=== PATIENT | male | born 1955 | race Caucasian/White ===

== ENCOUNTER 2018-10-01 13:53 | Outpatient (CLI) | payer BC ==
--- NOTE | 2018-10-01 14:21 | RAD ---
PA AND LATERAL CHEST RADIOGRAPH: History: Shortness of breath. History of smoking. Comparison: 09-14-09 FINDINGS: There are increased interstitial opacities seen throughout the lungs bilaterally without patchy densi ty seen at the right lung base and in the region of the lingula. Findings may be related to infectiou s process versus asymmetric pulmonary edema. There is no pleural effusion or pneumothorax. No consoli dation is seen. The cardiac silhouette and pulmonary vasculature are within normal limits. IMPRESSION: Increased interstitial densities seen bilaterally with slightly greater patchy densities at the right lung base and in the region of the lingula. Findings may be related to either pulmonary edema or inf ectious process. Follow up to resolution is recommended. POS: [facility]
== END 2018-10-01 13:54 | disposition home or self-care (01) ==
LOC: BICRAD 13:53
PROVIDERS: ATTEND Family Medicine
DX: R06.02 Shortness of breath (principal); J98.4 Other disorders of lung
CPT/HCPCS: 71046

== ENCOUNTER 2021-03-02 11:03 | Outpatient (CLI) | payer BC | END 2021-03-02 11:04 | disposition home or self-care (01) | LOC: BICRAD 11:03 | PROVIDERS: ATTEND Internal Medicine Rheumatology | DX: M05.79 Rheumatoid arthritis with rheumatoid factor of multiple sites without organ or systems involvement (principal); J98.4 Other disorders of lung | CPT/HCPCS: 71046 ==

== ENCOUNTER 2021-06-29 10:34 | Outpatient (CLI) | payer BC | END 2021-06-29 10:35 | disposition home or self-care (01) | LOC: BICULT 10:34 | PROVIDERS: ATTEND Family Medicine | DX: I82.401 Acute embolism and thrombosis of unspecified deep veins of right lower extremity (principal) ==

== ENCOUNTER 2021-08-21 08:55 | Outpatient (CLI) | payer MEDICARE, BC | END 2021-08-21 08:56 | disposition home or self-care (01) | LOC: BICRAD 08:55 | PROVIDERS: ATTEND Family Medicine | DX: R06.02 Shortness of breath (principal); J20.7 Acute bronchitis due to echovirus; R91.8 Other nonspecific abnormal finding of lung field; J84.89 Other specified interstitial pulmonary diseases | CPT/HCPCS: 71046 ==

== ENCOUNTER 2021-08-26 06:15 | Inpatient (IN) | payer MEDICARE, BC ==
[2021-08-26 07:23] LABS: Bilirubin Negative (Negative); Blood, Urine Negative (Negative); Clarity Clear (Clear); Glucose, Urine (Dipstick) Normal (Negative); Ketone, Urine Negative (Negative); Leukocyte Negative Leu/uL (Negative); Nitrite Negative (Negative); Protein, Urine (Dipstick) Negative (Neg-Trace); Specific Gravity, Urine 1.006 (1.002-1.036); Urobilinogen Normal mg/dL (Less than 2)
[2021-08-26 08:29] LABS: #Basophils 0.1 thou/uL (0.0-0.2); #Eosinphils 0.4 thou/uL (0.0-0.7); #Lymphocytes 1.7 thou/uL (1.20-3.40); #Monocytes 0.5 thou/uL (0.11-0.59); #Neutrophils 15.8 thou/uL (1.40-6.50); %Basophils 0.4 % (0.0-1.0); %Eosinophils 2.2 % (0.0-10.0); %Lymphocytes 9.3 % (21.0-51.0); %Monocytes 2.6 % (0.0-10.0); %Neutrophils 85.6 % (42.0-75.0); Hemoglobin 11.1 g/dL (14.0-18.0); Mean Corpuscular HGB CONC 32.9 g/dL (32.0-36.0); Mean Corpuscular Volume 91.1 fL (78.0-98.0); Mean Platelet Volume 7.5 fL (7.4-10.4); Platelet Count 343 thou/uL (130-400); Red Blood Cell (RBC) Count 3.71 mill/uL (4.70-6.10); White Blood Cell (WBC) Count 18.4 thou/uL (4.8-10.8)
[2021-08-26 08:49] LABS: ALT (SGPT) 61 U/L (8-55); AST (SGOT) 41 U/L (5-34); Alkaline Phosphatase 93 U/L (40-110); Anion Gap 12 mmol/L (10-20); BUN (Urea Nitrogen) 9 mg/dL (8.4-25.7); Bilirubin, Total 0.3 mg/dL (0.2-1.2); Calc. Creatinine Clearance 0 mL/min (70-130); Calcium 8.2 mg/dL (7.8-10.44); Carbon Dioxide 23 mmol/L (23-31); Chloride 106 mmol/L (98-107); Estimated GFR 103; Globulin 2.7 g/dL (2.4-3.5); Glucose 78 mg/dL (80-115); Potassium 3.3 mmol/L (3.5-5.1); Protein, Total 5.7 g/dL (5.8-8.1); Sodium 138 mmol/L (136-145)
[2021-08-26] MEDS ORDERED: Cefepime 2 GM VIAL ONE (08:50)
[2021-08-26 09:52] LABS: SARS-CoV-2 NAA Rapid Test Not Detected (NotDetected)
[2021-08-26] MEDS ORDERED: Acetaminophen 325 MG TAB PO PRN (10:43)
[2021-08-26] MEDS ORDERED: Potassium Chloride 20 MEQ TAB PO SCH (11:45)
[2021-08-26] MEDS ORDERED: Albuterol Sulfate 1.25 MG/3 ML NEB NEB SCH (11:45)
[2021-08-26 12:26] LABS: Iron 18 ug/dL (65-175); Iron Binding Capacity, Total 265 mcg/dL (261-462)
[2021-08-26] MEDS ORDERED: Albuterol Sulfate 2.5 mg/3 ml Neb NEB SCH (13:00)
[2021-08-26] MEDS ORDERED: cefTRIAXone\\ROCEPHIN 1 GM in Sodium Chloride 0.9% 100 ML IVPB SCH (13:00)
[2021-08-26] MEDS: Nicotine 14 MG PATCH TD SCH (13:47)
[2021-08-26] MEDS: Benzonatate 100 MG CAP PO PRN ×2 (13:50→20:30)
[2021-08-26] MEDS ORDERED: Azithromycin 500 MG in Sodium Chloride 0.9% 250 ML 250 ML IVPB SCH (14:00)
[2021-08-26] MEDS ORDERED: Iopamidol-370 76% 500 ML 1 ML ONE (15:35)
[2021-08-26] MEDS: Mometasone 200 MCG/Formoterol 5 MCG 120 PUFF INHALER INH SCH (19:29)
[2021-08-26] MEDS ORDERED: hydrOXYzine 25 MG TAB PO PRN (20:24)
[2021-08-26] MEDS: Enoxaparin Sodium 80 MG/0.8 ML SYRINGE SC SCH (20:30)
[2021-08-26] MEDS ORDERED: hydrOXYzine 25 MG TAB PO SCH (20:30)
[2021-08-26] MEDS ORDERED: Ketorolac Tromethamine 10 MG TAB PO SCH (20:45)
[2021-08-27] MEDS ORDERED: diphenhydrAMINE 50 MG CAP PO SCH ×2 (01:15→05:30)
[2021-08-27] MEDS: Benzonatate 100 MG CAP PO PRN ×2 (02:16→12:29)
[2021-08-27] MEDS ORDERED: Lorazepam 0.5 MG TAB PO SCH (06:15)
[2021-08-27 06:51] LABS: Anion Gap 18 mmol/L (10-20); BUN (Urea Nitrogen) 11 mg/dL (8.4-25.7); Calc. Creatinine Clearance 88 mL/min (70-130); Calcium 8.3 mg/dL (7.8-10.44); Carbon Dioxide 18 mmol/L (23-31); Chloride 103 mmol/L (98-107); Estimated GFR 99; Glucose 80 mg/dL (80-115); Magnesium 1.6 mg/dL (1.6-2.6); Phosphorus 2.7 mg/dL (2.3-4.7); Potassium 3.9 mmol/L (3.5-5.1); Sodium 135 mmol/L (136-145)
[2021-08-27] MEDS: Mometasone 200 MCG/Formoterol 5 MCG 120 PUFF INHALER INH SCH ×2 (07:17→18:17)
[2021-08-27 07:24] LABS: Mean Corpuscular HGB CONC 32.4 g/dL (32.0-36.0); Mean Corpuscular Hemoglobin 29.5 pg (27.0-31.0); Mean Corpuscular Volume 91.2 fL (78.0-98.0); Mean Platelet Volume 7.5 fL (7.4-10.4); Platelet Count 297 thou/uL (130-400); RBC Distribution Width 14.2 % (11.5-14.5); Red Blood Cell (RBC) Count 3.73 mill/uL (4.70-6.10); White Blood Cell (WBC) Count 13.8 thou/uL (4.8-10.8)
[2021-08-27 08:06] LABS: Band 26 % (5-11); Lymphocytes 9 % (21-51); MDiff Complete? YES; Neutrophil 65 % (42-75); Platelet Morphology Comment Appears Adequate; Polychromasia SLIGHT = 2-3 cells (100X) (0-2/hpf)
[2021-08-27] MEDS: Enoxaparin Sodium 80 MG/0.8 ML SYRINGE SC SCH (08:18)
[2021-08-27] MEDS: Iron Polysaccharides Complex 150 MG CAP PO SCH (08:18)
[2021-08-27] MEDS: Leflunomide 10 mg Tablet PO SCH (08:18)
[2021-08-27] MEDS ORDERED: Enoxaparin Sodium 40 MG/0.4 ML SYRINGE SC SCH (09:00)
[2021-08-27] MEDS ORDERED: Lorazepam (BATCHED) 2 MG/ML SYR SLOW IVP PRN (11:51)
[2021-08-27] MEDS: Nicotine 14 MG PATCH TD SCH (11:58)
[2021-08-27] MEDS ORDERED: ALPRAZolam 0.25 MG TAB PO SCH ×2 (12:00→21:00)
[2021-08-27] MEDS ORDERED: clonazePAM 0.5 MG TAB PO SCH (12:00)
[2021-08-27] MEDS ORDERED: guaiFENesin/Codeine 200 mg/20 mg 10 ml Cup PO PRN (14:51)
[2021-08-27] MEDS ORDERED: Azithromycin 500 MG in Sodium Chloride 0.9% 250 ML 250 ML IVPB SCH (15:00)
[2021-08-27] MEDS ORDERED: Meropenem 1 GM in Sodium Chloride 0.9% 100 ML IVPB SCH ×2 (15:00→22:00)
[2021-08-27] MEDS: Vancomycin 1 GM in Premix Bag 1 BAG IVPB SCH (15:47)
[2021-08-27 16:46] LABS: Actual Bicarbonate (HCO3a) 18.6 mEq/L (22-28); Base Excess (BEa) -3.4 mEq/L (-2.0 to +3.0); Calcium, Ionized (arterial) 1.05 mmol/L (1.12-1.30); Carboxyhemoglobin (COHb) 0.9 gm% (0.0-3.0); Hemoglobin (Hb) 11.9 g/dL (14.0-18.0); Potassium - ABG Lab 4.65 mmol/L (3.70-5.30); pH, Arterial 7.49 (7.35-7.45)
[2021-08-27 16:47] LABS: CO2 Tension 25.1 mmHg (35.0-45.0); O2 Tension (PaO2), arterial 42.4 mmHg (> 80.0)
[2021-08-27 16:48] LABS: ALV-art Gradient 639.225 mmHg (0-20); Puncture Site RRA
[2021-08-27] MEDS ORDERED: Midazolam HCl 2 mg/2 ml Vial SLOW IVP SCH ×2 (17:00→18:15)
[2021-08-27] MEDS ORDERED: Diazepam 10 MG/2 ML SYRINGE IVP SCH (17:00)
[2021-08-27] MEDS ORDERED: Propofol 1,000 MG/100 ML VIAL IV ONE (17:34)
[2021-08-27] MEDS ORDERED: Midazolam HCl 2 mg/2 ml Vial ONE (17:36)
[2021-08-27] MEDS ORDERED: Norepinephrine 8 MG/0.9% NS 250 ML ONE (17:36)
[2021-08-27] MEDS: Midazolam HCl 2 mg/2 ml Vial ONE ×2 (17:47→18:14)
[2021-08-27] MEDS ORDERED: Electrolyte Replacement Protocol 1 EACH IVPB ONE (18:11)
[2021-08-27] MEDS ORDERED: Acetaminophen 325 MG Suppository PR PRN (18:11)
[2021-08-27] MEDS: Azithromycin 500 MG in Sodium Chloride 0.9% 250 ML 250 ML IVPB SCH (18:12)
[2021-08-27] MEDS ORDERED: Fentanyl BOLUS 250 ML IVPB PRN (18:15)
[2021-08-27] MEDS ORDERED: Propofol BOLUS 1,000 MG/100 ML VIAL IV PRN (18:15)
[2021-08-27] MEDS ORDERED: DISCONTINUE PREVIOUS NARCOTIC PAIN MEDICATIONS AND BENZODIAZEPINES FS SCH (18:15)
[2021-08-27] MEDS ORDERED: Ventilator Sedation Protocol 1 EACH FS SCH (18:15)
[2021-08-27] MEDS: Propofol 1,000 MG/100 ML VIAL IV PRN (18:16)
[2021-08-27] MEDS: Midazolam HCl 2 mg/2 ml Vial SLOW IVP PRN ×4 (18:18→23:59)
[2021-08-27] MEDS: Fentanyl CADD 100 ML IV SCH (18:27)
[2021-08-27] MEDS ORDERED: Magnesium 2 GM/50 ML(in water) 2 GM in Premix Bag 1 BAG IVPB SCH (18:30)
[2021-08-27] MEDS ORDERED: Electrolyte Replacement Protocol FS PRN (18:30)
[2021-08-27 18:57] LABS: Actual Bicarbonate (HCO3a) 17.7 mEq/L (22-28); Analyzer IN Cardio ER; Base Excess (BEa) -8.5 mEq/L (-2.0 to +3.0); CO2 Tension 39.2 mmHg (35.0-45.0); Calcium, Ionized (arterial) 1.04 mmol/L (1.12-1.30); Hemoglobin (Hb) 10.8 g/dL (14.0-18.0); O2 Tension (PaO2), arterial 66.6 mmHg (> 80.0); Potassium - ABG Lab 4.39 mmol/L (3.70-5.30); pH, Arterial 7.27 (7.35-7.45)
[2021-08-27 19:00] LABS: Puncture Site RBA
[2021-08-27] MEDS ORDERED: Sodium Bicarbonate 150 MEQ in Dextrose 5% in Water 1,000 ML IV SCH (19:45)
[2021-08-27] MEDS: ALPRAZolam 0.5 MG TAB PO SCH (20:32)
[2021-08-27] MEDS: methylPREDNISolone Sod Succ 40 MG VIAL IVP SCH (20:33)
[2021-08-27] MEDS ORDERED: Norepinephrine 8 MG in Dextrose 5% in Water 242 ML IVPB PRN (21:45)
[2021-08-27 23:41] LABS: Actual Bicarbonate (HCO3a) 19.6 mEq/L (22-28); Base Excess (BEa) -4.6 mEq/L (-2.0 to +3.0); CO2 Tension 34.2 mmHg (35.0-45.0); Calcium, Ionized (arterial) 1.06 mmol/L (1.12-1.30); O2 Tension (PaO2), arterial 71.7 mmHg (> 80.0); Potassium - ABG Lab 4.44 mmol/L (3.70-5.30); pH, Arterial 7.38 (7.35-7.45)
[2021-08-27 23:43] LABS: Puncture Site RBR
[2021-08-28] MEDS: Midazolam HCl 2 mg/2 ml Vial SLOW IVP PRN ×6 (01:13→21:20)
[2021-08-28] MEDS: Propofol 1,000 MG/100 ML VIAL IV PRN ×2 (01:51→07:48)
[2021-08-28] MEDS ORDERED: Fentanyl CADD 100 ML ONE ×2 (02:43→14:36)
[2021-08-28] MEDS: Fentanyl CADD 100 ML IV SCH ×2 (03:14→14:39)
[2021-08-28 03:36] LABS: #Eosinphils 0.2 thou/uL (0.0-0.7); #Lymphocytes 0.9 thou/uL (1.20-3.40); #Monocytes 0.4 thou/uL (0.11-0.59); #Neutrophils 9.3 thou/uL (1.40-6.50); %Basophils 0.3 % (0.0-1.0); %Eosinophils 1.9 % (0.0-10.0); %Lymphocytes 8.1 % (21.0-51.0); %Monocytes 3.5 % (0.0-10.0); %Neutrophils 86.1 % (42.0-75.0); Hemoglobin 9.8 g/dL (14.0-18.0); Mean Corpuscular HGB CONC 32.5 g/dL (32.0-36.0); Mean Corpuscular Hemoglobin 29.9 pg (27.0-31.0); Mean Corpuscular Volume 92.1 fL (78.0-98.0); Platelet Count 312 thou/uL (130-400); RBC Distribution Width 14.2 % (11.5-14.5); Red Blood Cell (RBC) Count 3.27 mill/uL (4.70-6.10); White Blood Cell (WBC) Count 10.8 thou/uL (4.8-10.8)
[2021-08-28] MEDS: Vancomycin 1 GM in Premix Bag 1 BAG IVPB SCH ×2 (03:52→14:32)
[2021-08-28 04:06] LABS: ALT (SGPT) 41 U/L (8-55); AST (SGOT) 47 U/L (5-34); Albumin 2.6 g/dL (3.4-4.8); Alkaline Phosphatase 81 U/L (40-110); Anion Gap 18 mmol/L (10-20); BUN (Urea Nitrogen) 15 mg/dL (8.4-25.7); Bilirubin, Total 0.4 mg/dL (0.2-1.2); Calc. Creatinine Clearance 0 mL/min (70-130); Calcium 7.8 mg/dL (7.8-10.44); Carbon Dioxide 20 mmol/L (23-31); Chloride 101 mmol/L (98-107); Estimated GFR 101; Globulin 2.8 g/dL (2.4-3.5); Glucose 129 mg/dL (80-115); Potassium 4.5 mmol/L (3.5-5.1); Protein, Total 5.4 g/dL (5.8-8.1); Sodium 134 mmol/L (136-145)
[2021-08-28 06:39] LABS: Actual Bicarbonate (HCO3a) 23.4 mEq/L (22-28); Base Excess (BEa) -1.1 mEq/L (-2.0 to +3.0); CO2 Tension 38.6 mmHg (35.0-45.0); Calcium, Ionized (arterial) 1.03 mmol/L (1.12-1.30); O2 Tension (PaO2), arterial 71.1 mmHg (> 80.0); Potassium - ABG Lab 4.03 mmol/L (3.70-5.30); Puncture Site RRA
[2021-08-28] MEDS ORDERED: Dexmedetomidine In 0.9 % NaCl 100 ML IVPB SCH (07:15)
[2021-08-28] MEDS: Mometasone 200 MCG/Formoterol 5 MCG 120 PUFF INHALER INH SCH ×2 (07:21→18:31)
[2021-08-28] MEDS: Meropenem 1 GM in Sodium Chloride 0.9% 100 ML IVPB SCH ×4 (07:49→22:58)
[2021-08-28] MEDS: Leflunomide 10 mg Tablet PO SCH (07:51)
[2021-08-28] MEDS: Iron Polysaccharides Complex 150 MG CAP PO SCH (07:51)
[2021-08-28] MEDS: methylPREDNISolone Sod Succ 40 MG VIAL IVP SCH ×2 (07:51→20:37)
[2021-08-28] MEDS: ALPRAZolam 0.5 MG TAB PO SCH ×3 (07:51→20:39)
[2021-08-28] MEDS: Pantoprazole 40 MG VIAL IVP SCH (07:52)
[2021-08-28] MEDS ORDERED: Pantoprazole 40 MG VIAL IVP SCH (09:00)
[2021-08-28] MEDS: Nicotine 14 MG PATCH TD SCH (12:14)
[2021-08-28] MEDS: Azithromycin 500 MG in Sodium Chloride 0.9% 250 ML 250 ML IVPB SCH (16:44)
[2021-08-28] MEDS ORDERED: Sodium Chloride 0.9% 1,000 ML IV SCH (17:00)
[2021-08-28] MEDS: Sodium Chloride 0.9% 1,000 ML IV SCH ×2 (17:04→18:01)
[2021-08-28] MEDS: Enoxaparin Sodium 80 MG/0.8 ML SYRINGE SC SCH (20:38)
[2021-08-28] MEDS: Senokot S 8.6-50 MG TAB PO SCH (20:39)
[2021-08-28] MEDS ORDERED: D5W IVPB PRN (22:15)
[2021-08-28] MEDS ORDERED: NOREPINEPHRINE IVPB PRN (22:15)
[2021-08-29 02:05] LABS: #Lymphocytes 0.3 thou/uL (1.20-3.40); #Monocytes 0.3 thou/uL (0.11-0.59); #Neutrophils 10.2 thou/uL (1.40-6.50); %Eosinophils 0.2 % (0.0-10.0); %Lymphocytes 2.4 % (21.0-51.0); %Monocytes 2.9 % (0.0-10.0); %Neutrophils 94.4 % (42.0-75.0); Hemoglobin 8.9 g/dL (14.0-18.0); Mean Corpuscular HGB CONC 32.7 g/dL (32.0-36.0); Mean Corpuscular Hemoglobin 30.5 pg (27.0-31.0); Mean Corpuscular Volume 93.4 fL (78.0-98.0); Mean Platelet Volume 7.8 fL (7.4-10.4); Platelet Count 252 thou/uL (130-400); RBC Distribution Width 14.2 % (11.5-14.5); Red Blood Cell (RBC) Count 2.91 mill/uL (4.70-6.10); White Blood Cell (WBC) Count 10.8 thou/uL (4.8-10.8)
[2021-08-29] MEDS: Midazolam HCl 2 mg/2 ml Vial SLOW IVP PRN (02:20)
[2021-08-29 02:24] LABS: Vancomycin, Trough 8.7 ug/mL
[2021-08-29] MEDS: Sodium Chloride 0.9% 1,000 ML IV SCH ×2 (02:27→13:00)
[2021-08-29 02:44] LABS: ALT (SGPT) 42 U/L (8-55); AST (SGOT) 34 U/L (5-34); Albumin 2.4 g/dL (3.4-4.8); Alkaline Phosphatase 87 U/L (40-110); Anion Gap 15 mmol/L (10-20); BUN (Urea Nitrogen) 19 mg/dL (8.4-25.7); Bilirubin, Total Less than 0.2 mg/dL (0.2-1.2); Calc. Creatinine Clearance 96 mL/min (70-130); Calcium 6.8 mg/dL (7.8-10.44); Carbon Dioxide 19 mmol/L (23-31); Chloride 110 mmol/L (98-107); Estimated GFR 101; Globulin 2.7 g/dL (2.4-3.5); Glucose 201 mg/dL (80-115); Potassium 5.1 mmol/L (3.5-5.1); Protein, Total 5.1 g/dL (5.8-8.1); Sodium 139 mmol/L (136-145)
[2021-08-29] MEDS: Vancomycin 1 GM in Premix Bag 1 BAG IVPB SCH (02:49)
[2021-08-29] MEDS: Dexmedetomidine 1,000 MCG in Sodium Chloride 0.9% 250 ML 240 ML IVPB SCH ×3 (02:50→20:44)
[2021-08-29] MEDS: Vancomycin 1.5 GRAM/300 ML BAG 1.5 GM in Premix Bag 1 BAG IVPB SCH ×2 (02:59→15:08)
[2021-08-29] MEDS ORDERED: Fentanyl CADD 100 ML ONE ×2 (04:17→19:45)
[2021-08-29] MEDS: Fentanyl CADD 100 ML IV SCH ×2 (04:21→19:58)
[2021-08-29] MEDS: Mometasone 200 MCG/Formoterol 5 MCG 120 PUFF INHALER INH SCH ×2 (07:12→18:44)
[2021-08-29] MEDS: Meropenem 1 GM in Sodium Chloride 0.9% 100 ML IVPB SCH (07:45)
[2021-08-29] MEDS: Enoxaparin Sodium 80 MG/0.8 ML SYRINGE SC SCH ×2 (10:38→20:04)
[2021-08-29] MEDS: Polyethylene Glycol 3350 17 GM Packet PER TUBE SCH (10:38)
[2021-08-29] MEDS: Leflunomide 10 mg Tablet PO SCH (10:40)
[2021-08-29] MEDS: ALPRAZolam 0.5 MG TAB PO SCH ×3 (10:40→20:04)
[2021-08-29] MEDS: cefTRIAXone\\ROCEPHIN 1 GM in Sodium Chloride 0.9% 100 ML IVPB SCH (10:40)
[2021-08-29] MEDS: methylPREDNISolone Sod Succ 40 MG VIAL IVP SCH ×2 (10:40→20:05)
[2021-08-29] MEDS: Senokot S 8.6-50 MG TAB PO SCH ×2 (10:41→20:05)
[2021-08-29] MEDS: Iron Polysaccharides Complex 150 MG CAP PO SCH (12:57)
[2021-08-29] MEDS: Pantoprazole 40 MG VIAL IVP SCH (12:59)
[2021-08-29] MEDS: Nicotine 14 MG PATCH TD SCH (13:03)
[2021-08-29] MEDS: Propofol 1,000 MG/100 ML VIAL IV PRN (15:33)
[2021-08-29] MEDS ORDERED: Sodium Chloride 0.9% 1,000 ML IV SCH (17:00)
[2021-08-29] MEDS: Azithromycin 500 MG in Sodium Chloride 0.9% 250 ML 250 ML IVPB SCH (17:06)
[2021-08-30] MEDS ORDERED: Racepinephrine 2.25% 0.5 ML NEB ONE (03:23)
[2021-08-30] MEDS: Vancomycin 1.5 GRAM/300 ML BAG 1.5 GM in Premix Bag 1 BAG IVPB SCH (03:35)
[2021-08-30] MEDS: Propofol 1,000 MG/100 ML VIAL IV PRN (03:43)
[2021-08-30] MEDS: Dexmedetomidine 1,000 MCG in Sodium Chloride 0.9% 250 ML 240 ML IVPB SCH ×2 (06:09→22:46)
[2021-08-30] MEDS: Mometasone 200 MCG/Formoterol 5 MCG 120 PUFF INHALER INH SCH ×2 (06:35→19:04)
[2021-08-30 06:58] LABS: #Lymphocytes 0.6 thou/uL (1.20-3.40); #Monocytes 0.7 thou/uL (0.11-0.59); #Neutrophils 9.1 thou/uL (1.40-6.50); %Eosinophils 0.1 % (0.0-10.0); %Lymphocytes 5.5 % (21.0-51.0); %Monocytes 6.7 % (0.0-10.0); %Neutrophils 87.6 % (42.0-75.0); Hemoglobin 9.1 g/dL (14.0-18.0); Mean Corpuscular HGB CONC 31.1 g/dL (32.0-36.0); Mean Corpuscular Hemoglobin 28.9 pg (27.0-31.0); Mean Platelet Volume 8.3 fL (7.4-10.4); Platelet Count 299 thou/uL (130-400); RBC Distribution Width 14.2 % (11.5-14.5); Red Blood Cell (RBC) Count 3.16 mill/uL (4.70-6.10); White Blood Cell (WBC) Count 10.4 thou/uL (4.8-10.8)
[2021-08-30 07:20] LABS: Actual Bicarbonate (HCO3a) 22.9 mEq/L (22-28); Base Excess (BEa) -1.6 mEq/L (-2.0 to +3.0); CO2 Tension 37.8 mmHg (35.0-45.0); Carboxyhemoglobin (COHb) 0.5 gm% (0.0-3.0); O2 Tension (PaO2), arterial 70.9 mmHg (> 80.0)
[2021-08-30 07:26] LABS: ALT (SGPT) 135 U/L (8-55); AST (SGOT) 52 U/L (5-34); Albumin 2.5 g/dL (3.4-4.8); Alkaline Phosphatase 124 U/L (40-110); Anion Gap 17 mmol/L (10-20); BUN (Urea Nitrogen) 29 mg/dL (8.4-25.7); Bilirubin, Total Less than 0.2 mg/dL (0.2-1.2); Calc. Creatinine Clearance 104 mL/min (70-130); Calcium 7.2 mg/dL (7.8-10.44); Carbon Dioxide 17 mmol/L (23-31); Chloride 110 mmol/L (98-107); Estimated GFR 101; Globulin 2.6 g/dL (2.4-3.5); Glucose 198 mg/dL (80-115); Potassium 5.5 mmol/L (3.5-5.1); Protein, Total 5.1 g/dL (5.8-8.1); Sodium 138 mmol/L (136-145)
[2021-08-30 07:53] LABS: Puncture Site LRA
[2021-08-30] MEDS: Enoxaparin Sodium 80 MG/0.8 ML SYRINGE SC SCH ×2 (09:24→21:06)
[2021-08-30] MEDS: Polyethylene Glycol 3350 17 GM Packet PER TUBE SCH (09:24)
[2021-08-30] MEDS: ALPRAZolam 0.5 MG TAB PO SCH (09:25)
[2021-08-30] MEDS: Pantoprazole 40 MG VIAL IVP SCH (09:25)
[2021-08-30] MEDS: methylPREDNISolone Sod Succ 40 MG VIAL IVP SCH ×2 (09:25→20:58)
[2021-08-30] MEDS: Senokot S 8.6-50 MG TAB PO SCH (09:26)
[2021-08-30] MEDS: cefTRIAXone\\ROCEPHIN 1 GM in Sodium Chloride 0.9% 100 ML IVPB SCH (09:27)
[2021-08-30] MEDS: Leflunomide 10 mg Tablet PO SCH (11:25)
[2021-08-30] MEDS: Nicotine 14 MG PATCH TD SCH (13:22)
[2021-08-30] MEDS ORDERED: Acetaminophen 325 MG TAB PER TUBE PRN (13:30)
[2021-08-30] MEDS: Iron Polysaccharides Complex 150 MG CAP PO SCH (13:38)
[2021-08-30] MEDS ORDERED: guaiFENesin/Codeine 200 mg/20 mg 10 ml Cup PER TUBE PRN (13:45)
[2021-08-30] MEDS ORDERED: Furosemide 20 MG/2 ML VIAL SLOW IVP SCH (13:45)
[2021-08-30 14:46] LABS: Vancomycin, Trough 23.5 ug/mL
[2021-08-30] MEDS ORDERED: ALPRAZolam 0.5 MG TAB PER TUBE SCH (15:00)
[2021-08-30] MEDS: ALPRAZolam 0.5 MG TAB PER TUBE SCH ×2 (16:48→20:57)
[2021-08-30] MEDS: Azithromycin 500 MG in Sodium Chloride 0.9% 250 ML 250 ML IVPB SCH (16:48)
[2021-08-30] MEDS: Fentanyl CADD 100 ML IV SCH (20:02)
[2021-08-30] MEDS: Senokot S 8.6-50 MG TAB PER TUBE SCH (21:55)
[2021-08-31 02:18] LABS: #Lymphocytes 0.4 thou/uL (1.20-3.40); #Monocytes 0.7 thou/uL (0.11-0.59); #Neutrophils 10.9 thou/uL (1.40-6.50); %Eosinophils 0.2 % (0.0-10.0); %Lymphocytes 3.4 % (21.0-51.0); %Monocytes 5.4 % (0.0-10.0); Mean Corpuscular HGB CONC 32.9 g/dL (32.0-36.0); Mean Corpuscular Hemoglobin 30.5 pg (27.0-31.0); Mean Corpuscular Volume 92.7 fL (78.0-98.0); Mean Platelet Volume 8.4 fL (7.4-10.4); Platelet Count 304 thou/uL (130-400); RBC Distribution Width 14.1 % (11.5-14.5); Red Blood Cell (RBC) Count 2.97 mill/uL (4.70-6.10)
[2021-08-31 02:31] LABS: Vancomycin, Random 11.6 ug/mL (See Comment)
[2021-08-31 03:36] LABS: ALT (SGPT) 138 U/L (8-55); AST (SGOT) 56 U/L (5-34); Albumin 2.6 g/dL (3.4-4.8); Alkaline Phosphatase 126 U/L (40-110); Anion Gap 16 mmol/L (10-20); BUN (Urea Nitrogen) 29 mg/dL (8.4-25.7); Bilirubin, Total 0.3 mg/dL (0.2-1.2); Calc. Creatinine Clearance 117 mL/min (70-130); Calcium 7.5 mg/dL (7.8-10.44); Carbon Dioxide 22 mmol/L (23-31); Chloride 108 mmol/L (98-107); Estimated GFR 105; Globulin 2.7 g/dL (2.4-3.5); Glucose 190 mg/dL (80-115); Potassium 4.1 mmol/L (3.5-5.1); Protein, Total 5.3 g/dL (5.8-8.1); Sodium 142 mmol/L (136-145)
[2021-08-31] MEDS: VANCOMYCIN 1.25 GM/250 ML BAG 1.25 GM in Premix Bag 1 BAG IVPB SCH ×2 (04:26→17:54)
[2021-08-31] MEDS: Mometasone 200 MCG/Formoterol 5 MCG 120 PUFF INHALER INH SCH ×2 (07:45→18:53)
[2021-08-31] MEDS ORDERED: Furosemide 20 MG/2 ML VIAL SLOW IVP SCH (09:00)
[2021-08-31] MEDS: Polyethylene Glycol 3350 17 GM Packet PER TUBE SCH (09:30)
[2021-08-31] MEDS: Senokot S 8.6-50 MG TAB PER TUBE SCH ×2 (09:30→21:58)
[2021-08-31] MEDS: ALPRAZolam 0.5 MG TAB PER TUBE SCH (09:30)
[2021-08-31] MEDS: methylPREDNISolone Sod Succ 40 MG VIAL IVP SCH ×2 (09:30→22:00)
[2021-08-31] MEDS: Pantoprazole 40 MG VIAL IVP SCH (09:30)
[2021-08-31] MEDS: Enoxaparin Sodium 80 MG/0.8 ML SYRINGE SC SCH ×2 (09:30→21:58)
[2021-08-31] MEDS: cefTRIAXone\\ROCEPHIN 1 GM in Sodium Chloride 0.9% 100 ML IVPB SCH (09:30)
[2021-08-31] MEDS: Dexmedetomidine 1,000 MCG in Sodium Chloride 0.9% 250 ML 240 ML IVPB SCH (12:01)
[2021-08-31] MEDS: Nicotine 14 MG PATCH TD SCH (13:27)
[2021-08-31] MEDS ORDERED: ADMIXTURE FEE IVPB SCH (15:00)
[2021-08-31] MEDS ORDERED: VANCOMYCIN IVPB SCH (15:00)
[2021-08-31] MEDS: ALPRAZolam 1 MG TAB PO SCH ×2 (15:19→21:58)
[2021-08-31] MEDS: Azithromycin 500 MG in Sodium Chloride 0.9% 250 ML 250 ML IVPB SCH (16:32)
[2021-08-31] MEDS: Fentanyl CADD 100 ML IV SCH (18:09)
[2021-08-31] MEDS: Midazolam HCl 2 mg/2 ml Vial SLOW IVP PRN (22:41)
[2021-09-01] MEDS: Dexmedetomidine 1,000 MCG in Sodium Chloride 0.9% 250 ML 240 ML IVPB SCH ×3 (01:30→21:32)
[2021-09-01 04:17] LABS: ALT (SGPT) 127 U/L (8-55); AST (SGOT) 48 U/L (5-34); Albumin 2.8 g/dL (3.4-4.8); Alkaline Phosphatase 126 U/L (40-110); Anion Gap 16 mmol/L (10-20); BUN (Urea Nitrogen) 30 mg/dL (8.4-25.7); Bilirubin, Total 0.4 mg/dL (0.2-1.2); Calc. Creatinine Clearance 127 mL/min (70-130); Carbon Dioxide 27 mmol/L (23-31); Chloride 106 mmol/L (98-107); Estimated GFR 108; Globulin 2.9 g/dL (2.4-3.5); Glucose 135 mg/dL (80-115); Magnesium 2.4 mg/dL (1.6-2.6); Potassium 3.9 mmol/L (3.5-5.1); Protein, Total 5.7 g/dL (5.8-8.1); Sodium 145 mmol/L (136-145)
[2021-09-01] MEDS: VANCOMYCIN 1.25 GM/250 ML BAG 1.25 GM in Premix Bag 1 BAG IVPB SCH ×2 (04:44→16:15)
[2021-09-01 05:15] LABS: Band 11 % (5-11); Hemoglobin 11.3 g/dL (14.0-18.0); Lymphocytes 6 % (21-51); MDiff Complete? YES; Mean Corpuscular HGB CONC 32.1 g/dL (32.0-36.0); Mean Corpuscular Hemoglobin 29.2 pg (27.0-31.0); Mean Platelet Volume 8.7 fL (7.4-10.4); Monocytes 3 % (0-10); Neutrophil 80 % (42-75); Platelet Count 373 thou/uL (130-400); RBC Distribution Width 14.3 % (11.5-14.5); Red Blood Cell (RBC) Count 3.88 mill/uL (4.70-6.10); White Blood Cell (WBC) Count 22.3 thou/uL (4.8-10.8)
[2021-09-01] MEDS ORDERED: Simethicone Chewable 80 MG TAB PER TUBE PRN (05:17)
[2021-09-01 07:36] LABS: Actual Bicarbonate (HCO3a) 29.6 mEq/L (22-28); Base Excess (BEa) 6.2 mEq/L (-2.0 to +3.0); CO2 Tension 37.9 mmHg (35.0-45.0); Calcium, Ionized (arterial) 1.01 mmol/L (1.12-1.30); Hemoglobin (Hb) 11.4 g/dL (14.0-18.0); Potassium - ABG Lab 3.48 mmol/L (3.70-5.30); pH, Arterial 7.51 (7.35-7.45)
[2021-09-01 07:42] LABS: Puncture Site LRA
[2021-09-01 07:43] LABS: ALV-art Gradient 145.175 mmHg (0-20)
[2021-09-01] MEDS: Mometasone 200 MCG/Formoterol 5 MCG 120 PUFF INHALER INH SCH ×2 (07:58→18:26)
[2021-09-01] MEDS ORDERED: Lorazepam (BATCHED) 2 MG/ML SYR SLOW IVP PRN (08:33)
[2021-09-01] MEDS: methylPREDNISolone Sod Succ 40 MG VIAL IVP SCH ×2 (09:28→21:32)
[2021-09-01] MEDS: cefTRIAXone\\ROCEPHIN 1 GM in Sodium Chloride 0.9% 100 ML IVPB SCH (09:28)
[2021-09-01] MEDS: Pantoprazole 40 MG VIAL IVP SCH (09:28)
[2021-09-01] MEDS: Enoxaparin Sodium 80 MG/0.8 ML SYRINGE SC SCH ×2 (09:29→21:33)
[2021-09-01] MEDS: ALPRAZolam 1 MG TAB PO SCH ×3 (10:13→21:33)
[2021-09-01] MEDS: Senokot S 8.6-50 MG TAB PER TUBE SCH ×2 (10:13→21:33)
[2021-09-01] MEDS ORDERED: Metoclopramide HCl 10 MG/2 ML VIAL IVP PRN (11:15)
[2021-09-01] MEDS: Nicotine 14 MG PATCH TD SCH (12:35)
[2021-09-01] MEDS: Metoclopramide HCl 10 MG/2 ML VIAL IVP SCH ×2 (14:07→20:17)
[2021-09-01] MEDS: Morphine 4 MG/ML VIAL SLOW IVP PRN (15:26)
[2021-09-01] MEDS: Polyethylene Glycol 3350 17 GM Packet PER TUBE SCH (15:28)
[2021-09-01 15:38] LABS: Vancomycin, Trough 19.2 ug/mL
[2021-09-01] MEDS: Fentanyl CADD 100 ML IV SCH (20:03)
[2021-09-02] MEDS: Metoclopramide HCl 10 MG/2 ML VIAL IVP SCH ×4 (02:29→20:27)
[2021-09-02 04:12] LABS: ALT (SGPT) 83 U/L (8-55); AST (SGOT) 30 U/L (5-34); Albumin 2.5 g/dL (3.4-4.8); Alkaline Phosphatase 97 U/L (40-110); Anion Gap 14 mmol/L (10-20); BUN (Urea Nitrogen) 30 mg/dL (8.4-25.7); Bilirubin, Total 0.5 mg/dL (0.2-1.2); Calc. Creatinine Clearance 130 mL/min (70-130); Calcium 7.6 mg/dL (7.8-10.44); Carbon Dioxide 27 mmol/L (23-31); Chloride 107 mmol/L (98-107); Estimated GFR 108; Globulin 2.4 g/dL (2.4-3.5); Glucose 138 mg/dL (80-115); Magnesium 2.4 mg/dL (1.6-2.6); Potassium 4.3 mmol/L (3.5-5.1); Protein, Total 4.9 g/dL (5.8-8.1); Sodium 144 mmol/L (136-145)
[2021-09-02 05:28] LABS: Band 10 % (5-11); Hemoglobin 10.3 g/dL (14.0-18.0); Hypochromia SLIGHT = 6-15 cells (100X) (0-5/hpf); Lymphocytes 6 % (21-51); MDiff Complete? YES; Mean Corpuscular HGB CONC 32.2 g/dL (32.0-36.0); Mean Corpuscular Hemoglobin 29.7 pg (27.0-31.0); Mean Corpuscular Volume 92.3 fL (78.0-98.0); Mean Platelet Volume 8.7 fL (7.4-10.4); Neutrophil 84 % (42-75); Platelet Count 307 thou/uL (130-400); Platelet Morphology Comment Appears Adequate; RBC Distribution Width 14.3 % (11.5-14.5); Red Blood Cell (RBC) Count 3.46 mill/uL (4.70-6.10)
[2021-09-02] MEDS: Mometasone 200 MCG/Formoterol 5 MCG 120 PUFF INHALER INH SCH ×2 (06:48→18:29)
[2021-09-02] MEDS: methylPREDNISolone Sod Succ 40 MG VIAL IVP SCH ×2 (08:27→20:28)
[2021-09-02] MEDS: Pantoprazole 40 MG VIAL IVP SCH (08:28)
[2021-09-02] MEDS: Enoxaparin Sodium 80 MG/0.8 ML SYRINGE SC SCH ×2 (08:28→20:27)
[2021-09-02] MEDS: Polyethylene Glycol 3350 17 GM Packet PER TUBE SCH (08:29)
[2021-09-02] MEDS: Senokot S 8.6-50 MG TAB PER TUBE SCH ×2 (08:29→20:28)
[2021-09-02] MEDS: cefTRIAXone\\ROCEPHIN 1 GM in Sodium Chloride 0.9% 100 ML IVPB SCH (08:29)
[2021-09-02] MEDS: ALPRAZolam 1 MG TAB PO SCH ×3 (08:29→20:27)
[2021-09-02] MEDS: Dexmedetomidine 1,000 MCG in Sodium Chloride 0.9% 250 ML 240 ML IVPB SCH ×2 (09:09→18:33)
[2021-09-02] MEDS: Nicotine 14 MG PATCH TD SCH (12:24)
[2021-09-02] MEDS: Morphine 4 MG/ML VIAL SLOW IVP PRN (12:33)
[2021-09-02] MEDS: Metoprolol Tartrate 25 MG TAB PO SCH (20:28)
[2021-09-03] MEDS: Metoclopramide HCl 10 MG/2 ML VIAL IVP SCH ×4 (02:13→20:24)
[2021-09-03] MEDS: Dexmedetomidine 1,000 MCG in Sodium Chloride 0.9% 250 ML 240 ML IVPB SCH ×3 (04:35→23:45)
[2021-09-03 04:51] LABS: ALT (SGPT) 63 U/L (8-55); AST (SGOT) 20 U/L (5-34); Albumin 2.6 g/dL (3.4-4.8); Alkaline Phosphatase 97 U/L (40-110); Anion Gap 17 mmol/L (10-20); BUN (Urea Nitrogen) 31 mg/dL (8.4-25.7); Bilirubin, Total 0.3 mg/dL (0.2-1.2); Calc. Creatinine Clearance 121 mL/min (70-130); Calcium 7.8 mg/dL (7.8-10.44); Carbon Dioxide 25 mmol/L (23-31); Chloride 106 mmol/L (98-107); Estimated GFR 106; Globulin 2.6 g/dL (2.4-3.5); Glucose 143 mg/dL (80-115); Magnesium 2.4 mg/dL (1.6-2.6); Potassium 4.5 mmol/L (3.5-5.1); Protein, Total 5.2 g/dL (5.8-8.1); Sodium 143 mmol/L (136-145)
[2021-09-03 05:10] LABS: Band 15 % (5-11); Hemoglobin 10.8 g/dL (14.0-18.0); Lymphocytes 1 % (21-51); MDiff Complete? YES; Mean Corpuscular HGB CONC 31.6 g/dL (32.0-36.0); Mean Corpuscular Hemoglobin 29.6 pg (27.0-31.0); Mean Corpuscular Volume 93.6 fL (78.0-98.0); Mean Platelet Volume 9.2 fL (7.4-10.4); Monocytes 3 % (0-10); Neutrophil 81 % (42-75); Platelet Count 320 thou/uL (130-400); RBC Distribution Width 14.3 % (11.5-14.5); Red Blood Cell (RBC) Count 3.65 mill/uL (4.70-6.10); White Blood Cell (WBC) Count 20.8 thou/uL (4.8-10.8)
[2021-09-03] MEDS: Mometasone 200 MCG/Formoterol 5 MCG 120 PUFF INHALER INH SCH ×2 (06:47→18:22)
[2021-09-03] MEDS: Metoprolol Tartrate 25 MG TAB PO SCH ×2 (09:28→20:46)
[2021-09-03] MEDS: ALPRAZolam 1 MG TAB PO SCH ×3 (09:28→20:46)
[2021-09-03] MEDS: methylPREDNISolone Sod Succ 40 MG VIAL IVP SCH ×2 (09:28→20:46)
[2021-09-03] MEDS: Senokot S 8.6-50 MG TAB PER TUBE SCH ×2 (09:28→20:46)
[2021-09-03] MEDS: cefTRIAXone\\ROCEPHIN 1 GM in Sodium Chloride 0.9% 100 ML IVPB SCH (09:29)
[2021-09-03] MEDS: Polyethylene Glycol 3350 17 GM Packet PER TUBE SCH (09:29)
[2021-09-03] MEDS: Enoxaparin Sodium 80 MG/0.8 ML SYRINGE SC SCH ×2 (09:29→20:46)
[2021-09-03] MEDS: Pantoprazole 40 MG VIAL IVP SCH (09:29)
[2021-09-03] MEDS ORDERED: busPIRone HCl 5 MG TAB PER TUBE SCH (10:00)
[2021-09-03] MEDS: Nicotine 14 MG PATCH TD SCH (12:33)
[2021-09-03] MEDS ORDERED: Fentanyl CADD 100 ML ONE (15:17)
[2021-09-03] MEDS: Fentanyl CADD 100 ML IV SCH (15:26)
[2021-09-03] MEDS: busPIRone HCl 5 MG TAB PER TUBE SCH (20:46)
[2021-09-04] MEDS: Metoclopramide HCl 10 MG/2 ML VIAL IVP SCH ×4 (02:11→22:41)
[2021-09-04] MEDS: Morphine 4 MG/ML VIAL SLOW IVP PRN ×3 (03:08→12:42)
[2021-09-04 04:18] LABS: ALT (SGPT) 65 U/L (8-55); AST (SGOT) 36 U/L (5-34); Albumin 2.6 g/dL (3.4-4.8); Alkaline Phosphatase 102 U/L (40-110); Anion Gap 14 mmol/L (10-20); BUN (Urea Nitrogen) 29 mg/dL (8.4-25.7); Bilirubin, Total 0.3 mg/dL (0.2-1.2); Calc. Creatinine Clearance 128 mL/min (70-130); Calcium 7.9 mg/dL (7.8-10.44); Carbon Dioxide 26 mmol/L (23-31); Chloride 106 mmol/L (98-107); Estimated GFR 108; Globulin 2.7 g/dL (2.4-3.5); Glucose 124 mg/dL (80-115); Magnesium 2.3 mg/dL (1.6-2.6); Potassium 4.8 mmol/L (3.5-5.1); Protein, Total 5.3 g/dL (5.8-8.1); Sodium 141 mmol/L (136-145)
[2021-09-04 04:29] LABS: Band 2 % (5-11); Hemoglobin 10.6 g/dL (14.0-18.0); Hypochromia SLIGHT = 6-15 cells (100X) (0-5/hpf); Lymphocytes 2 % (21-51); MDiff Complete? YES; Mean Corpuscular HGB CONC 30.6 g/dL (32.0-36.0); Mean Corpuscular Hemoglobin 29.2 pg (27.0-31.0); Mean Corpuscular Volume 95.3 fL (78.0-98.0); Mean Platelet Volume 9.4 fL (7.4-10.4); Monocytes 3 % (0-10); Neutrophil 93 % (42-75); Platelet Count 333 thou/uL (130-400); Platelet Morphology Comment Appears Adequate; Polychromasia SLIGHT = 2-3 cells (100X) (0-2/hpf); RBC Distribution Width 14.5 % (11.5-14.5); Red Blood Cell (RBC) Count 3.62 mill/uL (4.70-6.10); White Blood Cell (WBC) Count 23.3 thou/uL (4.8-10.8)
[2021-09-04] MEDS: Mometasone 200 MCG/Formoterol 5 MCG 120 PUFF INHALER INH SCH ×2 (06:45→18:28)
[2021-09-04] MEDS: Enoxaparin Sodium 80 MG/0.8 ML SYRINGE SC SCH ×2 (09:11→22:11)
[2021-09-04] MEDS: Dexmedetomidine 1,000 MCG in Sodium Chloride 0.9% 250 ML 240 ML IVPB SCH ×2 (09:11→16:04)
[2021-09-04] MEDS: methylPREDNISolone Sod Succ 40 MG VIAL IVP SCH ×2 (09:11→22:09)
[2021-09-04] MEDS: ALPRAZolam 1 MG TAB PO SCH ×3 (09:11→22:08)
[2021-09-04] MEDS: Senokot S 8.6-50 MG TAB PER TUBE SCH ×2 (09:12→22:09)
[2021-09-04] MEDS: Polyethylene Glycol 3350 17 GM Packet PER TUBE SCH (09:12)
[2021-09-04] MEDS: busPIRone HCl 5 MG TAB PER TUBE SCH ×2 (09:12→22:08)
[2021-09-04] MEDS: Pantoprazole 40 MG VIAL IVP SCH (09:12)
[2021-09-04] MEDS: Metoprolol Tartrate 25 MG TAB PO SCH ×2 (09:12→22:09)
[2021-09-04] MEDS: Nicotine 14 MG PATCH TD SCH (12:21)
[2021-09-04] MEDS ORDERED: Fentanyl CADD 100 ML ONE (13:03)
[2021-09-04] MEDS: Fentanyl CADD 100 ML IV SCH (13:19)
[2021-09-05] MEDS: Metoclopramide HCl 10 MG/2 ML VIAL IVP SCH ×4 (01:30→20:31)
[2021-09-05] MEDS: Dexmedetomidine 1,000 MCG in Sodium Chloride 0.9% 250 ML 240 ML IVPB SCH ×2 (06:19→16:04)
[2021-09-05] MEDS: Mometasone 200 MCG/Formoterol 5 MCG 120 PUFF INHALER INH SCH ×2 (06:46→18:31)
[2021-09-05 06:51] LABS: ALT (SGPT) 67 U/L (8-55); AST (SGOT) 37 U/L (5-34); Albumin 2.5 g/dL (3.4-4.8); Alkaline Phosphatase 98 U/L (40-110); Anion Gap 16 mmol/L (10-20); BUN (Urea Nitrogen) 24 mg/dL (8.4-25.7); Bilirubin, Total 0.4 mg/dL (0.2-1.2); Calc. Creatinine Clearance 136 mL/min (70-130); Calcium 8.1 mg/dL (7.8-10.44); Carbon Dioxide 24 mmol/L (23-31); Chloride 103 mmol/L (98-107); Estimated GFR 109; Globulin 2.6 g/dL (2.4-3.5); Glucose 103 mg/dL (80-115); Magnesium 1.9 mg/dL (1.6-2.6); Potassium 4.6 mmol/L (3.5-5.1); Protein, Total 5.1 g/dL (5.8-8.1); Sodium 138 mmol/L (136-145)
[2021-09-05] MEDS: Morphine 4 MG/ML VIAL SLOW IVP PRN ×2 (07:19→17:39)
[2021-09-05 07:23] LABS: Hemoglobin 10.4 g/dL (14.0-18.0); Mean Corpuscular HGB CONC 31.4 g/dL (32.0-36.0); Mean Corpuscular Hemoglobin 28.9 pg (27.0-31.0); Mean Corpuscular Volume 92.1 fL (78.0-98.0); Mean Platelet Volume 9.9 fL (7.4-10.4); Platelet Count 318 thou/uL (130-400); RBC Distribution Width 14.5 % (11.5-14.5)
[2021-09-05 07:57] LABS: Band 10 % (5-11); Hypochromia SLIGHT = 6-15 cells (100X) (0-5/hpf); MDiff Complete? YES; Monocytes 2 % (0-10); Neutrophil 88 % (42-75); Platelet Morphology Comment Appears Adequate; Polychromasia SLIGHT = 2-3 cells (100X) (0-2/hpf)
[2021-09-05] MEDS ORDERED: Magnesium 2 GM/50 ML(in water) 2 GM in Premix Bag 1 BAG IVPB SCH (08:00)
[2021-09-05] MEDS: Enoxaparin Sodium 80 MG/0.8 ML SYRINGE SC SCH ×2 (08:03→20:50)
[2021-09-05] MEDS: ALPRAZolam 1 MG TAB PO SCH ×3 (08:04→20:50)
[2021-09-05] MEDS: Polyethylene Glycol 3350 17 GM Packet PER TUBE SCH (08:04)
[2021-09-05] MEDS: Metoprolol Tartrate 25 MG TAB PO SCH ×2 (08:04→20:50)
[2021-09-05] MEDS: Pantoprazole 40 MG VIAL IVP SCH (08:04)
[2021-09-05] MEDS: Senokot S 8.6-50 MG TAB PER TUBE SCH ×2 (08:04→20:50)
[2021-09-05] MEDS: busPIRone HCl 5 MG TAB PER TUBE SCH ×2 (08:07→20:50)
[2021-09-05] MEDS: methylPREDNISolone Sod Succ 40 MG VIAL IVP SCH ×2 (08:07→09:34)
[2021-09-05] MEDS: Nicotine 14 MG PATCH TD SCH (11:48)
[2021-09-06] MEDS: Metoclopramide HCl 10 MG/2 ML VIAL IVP SCH ×4 (01:03→20:42)
[2021-09-06 04:01] LABS: #Eosinphils 0.3 thou/uL (0.0-0.7); #Lymphocytes 0.9 thou/uL (1.20-3.40); #Neutrophils 17.3 thou/uL (1.40-6.50); %Eosinophils 1.7 % (0.0-10.0); %Lymphocytes 4.4 % (21.0-51.0); %Monocytes 5.1 % (0.0-10.0); %Neutrophils 88.7 % (42.0-75.0); Hemoglobin 10.2 g/dL (14.0-18.0); Mean Corpuscular HGB CONC 31.9 g/dL (32.0-36.0); Mean Corpuscular Hemoglobin 29.3 pg (27.0-31.0); Mean Corpuscular Volume 91.8 fL (78.0-98.0); Mean Platelet Volume 9.7 fL (7.4-10.4); Platelet Count 283 thou/uL (130-400); RBC Distribution Width 14.5 % (11.5-14.5); Red Blood Cell (RBC) Count 3.48 mill/uL (4.70-6.10); White Blood Cell (WBC) Count 19.4 thou/uL (4.8-10.8)
[2021-09-06 04:16] LABS: ALT (SGPT) 55 U/L (8-55); AST (SGOT) 35 U/L (5-34); Albumin 2.3 g/dL (3.4-4.8); Alkaline Phosphatase 96 U/L (40-110); Anion Gap 15 mmol/L (10-20); BUN (Urea Nitrogen) 21 mg/dL (8.4-25.7); Bilirubin, Total 0.5 mg/dL (0.2-1.2); Calc. Creatinine Clearance 143 mL/min (70-130); Carbon Dioxide 23 mmol/L (23-31); Chloride 102 mmol/L (98-107); Estimated GFR 111; Globulin 2.8 g/dL (2.4-3.5); Glucose 79 mg/dL (80-115); Potassium 4.5 mmol/L (3.5-5.1); Protein, Total 5.1 g/dL (5.8-8.1); Sodium 135 mmol/L (136-145)
[2021-09-06] MEDS: Dexmedetomidine 1,000 MCG in Sodium Chloride 0.9% 250 ML 240 ML IVPB SCH ×2 (04:23→15:12)
[2021-09-06] MEDS: Morphine 4 MG/ML VIAL SLOW IVP PRN (06:13)
[2021-09-06] MEDS: Mometasone 200 MCG/Formoterol 5 MCG 120 PUFF INHALER INH SCH (06:49)
[2021-09-06] MEDS ORDERED: Magnesium 2 GM/50 ML(in water) 2 GM in Premix Bag 1 BAG IVPB SCH (09:00)
[2021-09-06] MEDS: Metoprolol Tartrate 25 MG TAB PO SCH ×3 (09:17→21:14)
[2021-09-06] MEDS: busPIRone HCl 5 MG TAB PER TUBE SCH ×2 (09:18→20:30)
[2021-09-06] MEDS: Polyethylene Glycol 3350 17 GM Packet PER TUBE SCH ×2 (09:18→09:55)
[2021-09-06] MEDS: methylPREDNISolone Sod Succ 40 MG VIAL IVP SCH (09:18)
[2021-09-06] MEDS: ALPRAZolam 1 MG TAB PO SCH ×3 (09:18→20:28)
[2021-09-06] MEDS: Pantoprazole 40 MG VIAL IVP SCH (09:24)
[2021-09-06] MEDS: Senokot S 8.6-50 MG TAB PER TUBE SCH ×2 (09:55→20:29)
[2021-09-06] MEDS: Nicotine 14 MG PATCH TD SCH (13:06)
[2021-09-06] MEDS: Enoxaparin Sodium 80 MG/0.8 ML SYRINGE SC SCH ×3 (16:45→20:32)
[2021-09-07] MEDS: Metoclopramide HCl 10 MG/2 ML VIAL IVP SCH ×4 (02:18→20:34)
[2021-09-07 04:09] LABS: #Eosinphils 0.2 thou/uL (0.0-0.7); #Lymphocytes 0.8 thou/uL (1.20-3.40); #Monocytes 0.9 thou/uL (0.11-0.59); #Neutrophils 16.8 thou/uL (1.40-6.50); %Basophils 0.1 % (0.0-1.0); %Eosinophils 1.3 % (0.0-10.0); %Lymphocytes 4.1 % (21.0-51.0); %Monocytes 4.6 % (0.0-10.0); %Neutrophils 89.9 % (42.0-75.0); Hemoglobin 9.3 g/dL (14.0-18.0); Mean Corpuscular HGB CONC 32.2 g/dL (32.0-36.0); Mean Corpuscular Hemoglobin 29.6 pg (27.0-31.0); Mean Corpuscular Volume 91.8 fL (78.0-98.0); Mean Platelet Volume 9.1 fL (7.4-10.4); Platelet Count 251 thou/uL (130-400); RBC Distribution Width 14.6 % (11.5-14.5); Red Blood Cell (RBC) Count 3.14 mill/uL (4.70-6.10); White Blood Cell (WBC) Count 18.7 thou/uL (4.8-10.8)
[2021-09-07 04:24] LABS: ALT (SGPT) 45 U/L (8-55); AST (SGOT) 28 U/L (5-34); Albumin 2.3 g/dL (3.4-4.8); Alkaline Phosphatase 82 U/L (40-110); Anion Gap 14 mmol/L (10-20); BUN (Urea Nitrogen) 22 mg/dL (8.4-25.7); Bilirubin, Total 0.5 mg/dL (0.2-1.2); Calc. Creatinine Clearance 126 mL/min (70-130); Calcium 7.7 mg/dL (7.8-10.44); Carbon Dioxide 24 mmol/L (23-31); Chloride 101 mmol/L (98-107); Estimated GFR 106; Globulin 2.4 g/dL (2.4-3.5); Glucose 89 mg/dL (80-115); Protein, Total 4.7 g/dL (5.8-8.1); Sodium 135 mmol/L (136-145)
[2021-09-07] MEDS: Dexmedetomidine 1,000 MCG in Sodium Chloride 0.9% 250 ML 240 ML IVPB SCH ×2 (05:11→16:04)
[2021-09-07] MEDS: Morphine 4 MG/ML VIAL SLOW IVP PRN (06:20)
[2021-09-07] MEDS ORDERED: Morphine 4 MG/ML VIAL SLOW IVP PRN (06:21)
[2021-09-07] MEDS ORDERED: Magnesium 2 GM/50 ML(in water) 2 GM in Premix Bag 1 BAG IVPB SCH (08:00)
[2021-09-07] MEDS ORDERED: Fentanyl BOLUS 250 ML IVPB PRN (09:02)
[2021-09-07] MEDS: Pantoprazole 40 MG VIAL IVP SCH (09:03)
[2021-09-07] MEDS: Metoprolol Tartrate 25 MG TAB PO SCH ×2 (09:10→20:34)
[2021-09-07] MEDS: Senokot S 8.6-50 MG TAB PER TUBE SCH ×2 (09:11→20:35)
[2021-09-07] MEDS: methylPREDNISolone Sod Succ 40 MG VIAL IVP SCH (09:11)
[2021-09-07] MEDS: Polyethylene Glycol 3350 17 GM Packet PER TUBE SCH (09:11)
[2021-09-07] MEDS: ALPRAZolam 1 MG TAB PO SCH ×3 (09:12→20:34)
[2021-09-07] MEDS ORDERED: Fentanyl CADD 100 ML IV SCH (09:15)
[2021-09-07] MEDS: busPIRone HCl 5 MG TAB PER TUBE SCH ×2 (09:17→20:34)
[2021-09-07] MEDS: Enoxaparin Sodium 80 MG/0.8 ML SYRINGE SC SCH (09:19)
[2021-09-07] MEDS: Nicotine 14 MG PATCH TD SCH (14:55)
[2021-09-08] MEDS: Midazolam HCl 2 mg/2 ml Vial SLOW IVP PRN (01:12)
[2021-09-08 04:11] LABS: #Eosinphils 0.3 thou/uL (0.0-0.7); #Lymphocytes 0.8 thou/uL (1.20-3.40); #Monocytes 0.8 thou/uL (0.11-0.59); %Basophils 0.1 % (0.0-1.0); %Eosinophils 1.6 % (0.0-10.0); %Lymphocytes 4.3 % (21.0-51.0); %Monocytes 4.3 % (0.0-10.0); %Neutrophils 89.8 % (42.0-75.0); Hemoglobin 9.1 g/dL (14.0-18.0); Mean Corpuscular HGB CONC 31.9 g/dL (32.0-36.0); Mean Corpuscular Hemoglobin 29.5 pg (27.0-31.0); Mean Corpuscular Volume 92.2 fL (78.0-98.0); Mean Platelet Volume 9.8 fL (7.4-10.4); Platelet Count 249 thou/uL (130-400); RBC Distribution Width 14.6 % (11.5-14.5); Red Blood Cell (RBC) Count 3.09 mill/uL (4.70-6.10); White Blood Cell (WBC) Count 17.8 thou/uL (4.8-10.8)
[2021-09-08 04:31] LABS: ALT (SGPT) 38 U/L (8-55); AST (SGOT) 24 U/L (5-34); Albumin 2.3 g/dL (3.4-4.8); Alkaline Phosphatase 87 U/L (40-110); Anion Gap 14 mmol/L (10-20); BUN (Urea Nitrogen) 17 mg/dL (8.4-25.7); Bilirubin, Total 0.4 mg/dL (0.2-1.2); Calc. Creatinine Clearance 128 mL/min (70-130); Calcium 7.8 mg/dL (7.8-10.44); Carbon Dioxide 26 mmol/L (23-31); Chloride 102 mmol/L (98-107); Estimated GFR 108; Globulin 2.6 g/dL (2.4-3.5); Glucose 128 mg/dL (80-115); Potassium 3.7 mmol/L (3.5-5.1); Protein, Total 4.9 g/dL (5.8-8.1); Sodium 138 mmol/L (136-145)
[2021-09-08] MEDS: Metoclopramide HCl 10 MG/2 ML VIAL IVP SCH ×4 (04:52→21:08)
[2021-09-08] MEDS: Dexmedetomidine 1,000 MCG in Sodium Chloride 0.9% 250 ML 240 ML IVPB SCH ×2 (04:52→23:32)
[2021-09-08] MEDS: Metoprolol Tartrate 25 MG TAB PO SCH ×2 (09:31→21:09)
[2021-09-08] MEDS: ALPRAZolam 1 MG TAB PO SCH ×3 (09:32→21:09)
[2021-09-08] MEDS: Pantoprazole 40 MG VIAL IVP SCH (09:32)
[2021-09-08] MEDS: methylPREDNISolone Sod Succ 40 MG VIAL IVP SCH (09:32)
[2021-09-08] MEDS: Enoxaparin Sodium 80 MG/0.8 ML SYRINGE SC SCH ×2 (09:32→21:09)
[2021-09-08] MEDS: Polyethylene Glycol 3350 17 GM Packet PER TUBE SCH (09:33)
[2021-09-08] MEDS: Senokot S 8.6-50 MG TAB PER TUBE SCH ×2 (09:33→21:10)
[2021-09-08] MEDS: busPIRone HCl 5 MG TAB PER TUBE SCH ×2 (09:37→21:09)
[2021-09-08] MEDS: Nicotine 14 MG PATCH TD SCH (11:30)
[2021-09-09] MEDS: Metoclopramide HCl 10 MG/2 ML VIAL IVP SCH ×4 (02:31→20:30)
[2021-09-09 04:11] LABS: #Eosinphils 0.2 thou/uL (0.0-0.7); #Lymphocytes 0.8 thou/uL (1.20-3.40); #Monocytes 0.8 thou/uL (0.11-0.59); #Neutrophils 14.1 thou/uL (1.40-6.50); %Basophils 0.1 % (0.0-1.0); %Lymphocytes 5.3 % (21.0-51.0); %Monocytes 5.2 % (0.0-10.0); %Neutrophils 88.4 % (42.0-75.0); Hemoglobin 8.8 g/dL (14.0-18.0); Mean Corpuscular HGB CONC 31.3 g/dL (32.0-36.0); Mean Corpuscular Hemoglobin 28.9 pg (27.0-31.0); Mean Corpuscular Volume 92.2 fL (78.0-98.0); Mean Platelet Volume 10.4 fL (7.4-10.4); Platelet Count 250 thou/uL (130-400); RBC Distribution Width 14.5 % (11.5-14.5); Red Blood Cell (RBC) Count 3.05 mill/uL (4.70-6.10)
[2021-09-09 04:33] LABS: ALT (SGPT) 33 U/L (8-55); AST (SGOT) 19 U/L (5-34); Albumin 2.4 g/dL (3.4-4.8); Alkaline Phosphatase 89 U/L (40-110); Anion Gap 12 mmol/L (10-20); BUN (Urea Nitrogen) 15 mg/dL (8.4-25.7); Bilirubin, Total 0.4 mg/dL (0.2-1.2); Calc. Creatinine Clearance 145 mL/min (70-130); Calcium 8.1 mg/dL (7.8-10.44); Carbon Dioxide 28 mmol/L (23-31); Chloride 103 mmol/L (98-107); Estimated GFR 112; Globulin 2.7 g/dL (2.4-3.5); Glucose 119 mg/dL (80-115); Potassium 3.7 mmol/L (3.5-5.1); Protein, Total 5.1 g/dL (5.8-8.1); Sodium 139 mmol/L (136-145)
[2021-09-09] MEDS ORDERED: Pancrelipase DR 12,000 1 CAP PER TUBE PRN (07:39)
[2021-09-09] MEDS ORDERED: Sodium Bicarbonate Tab 325 MG TAB PER TUBE PRN (07:39)
[2021-09-09] MEDS: ALPRAZolam 1 MG TAB PO SCH ×3 (08:41→21:15)
[2021-09-09] MEDS: busPIRone HCl 5 MG TAB PER TUBE SCH ×2 (08:41→21:15)
[2021-09-09] MEDS: Metoprolol Tartrate 25 MG TAB PO SCH ×2 (08:41→21:15)
[2021-09-09] MEDS: Senokot S 8.6-50 MG TAB PER TUBE SCH ×2 (08:42→21:15)
[2021-09-09] MEDS: Polyethylene Glycol 3350 17 GM Packet PER TUBE SCH (08:42)
[2021-09-09] MEDS: Enoxaparin Sodium 80 MG/0.8 ML SYRINGE SC SCH ×2 (08:45→21:16)
[2021-09-09] MEDS: methylPREDNISolone Sod Succ 40 MG VIAL IVP SCH (08:53)
[2021-09-09] MEDS: Pantoprazole 40 MG VIAL IVP SCH (08:54)
[2021-09-09] MEDS: Nicotine 14 MG PATCH TD SCH (12:15)
[2021-09-10] MEDS: Metoclopramide HCl 10 MG/2 ML VIAL IVP SCH ×2 (01:54→07:30)
[2021-09-10] MEDS: Midazolam HCl 2 mg/2 ml Vial SLOW IVP PRN (01:59)
[2021-09-10 05:41] LABS: #Eosinphils 0.2 thou/uL (0.0-0.7); #Lymphocytes 1.1 thou/uL (1.20-3.40); #Monocytes 0.9 thou/uL (0.11-0.59); #Neutrophils 13.4 thou/uL (1.40-6.50); %Basophils 0.1 % (0.0-1.0); %Eosinophils 1.5 % (0.0-10.0); %Lymphocytes 7.1 % (21.0-51.0); %Monocytes 5.7 % (0.0-10.0); %Neutrophils 85.7 % (42.0-75.0); Hemoglobin 8.9 g/dL (14.0-18.0); Mean Corpuscular HGB CONC 31.1 g/dL (32.0-36.0); Mean Corpuscular Hemoglobin 28.9 pg (27.0-31.0); Mean Corpuscular Volume 92.6 fL (78.0-98.0); Mean Platelet Volume 9.4 fL (7.4-10.4); Platelet Count 234 thou/uL (130-400); RBC Distribution Width 14.8 % (11.5-14.5); Red Blood Cell (RBC) Count 3.09 mill/uL (4.70-6.10); White Blood Cell (WBC) Count 15.7 thou/uL (4.8-10.8)
[2021-09-10 06:00] LABS: ALT (SGPT) 32 U/L (8-55); AST (SGOT) 19 U/L (5-34); Albumin 2.4 g/dL (3.4-4.8); Alkaline Phosphatase 83 U/L (40-110); Anion Gap 14 mmol/L (10-20); BUN (Urea Nitrogen) 15 mg/dL (8.4-25.7); Bilirubin, Total 0.5 mg/dL (0.2-1.2); Calc. Creatinine Clearance 145 mL/min (70-130); Carbon Dioxide 27 mmol/L (23-31); Chloride 103 mmol/L (98-107); Estimated GFR 112; Globulin 2.7 g/dL (2.4-3.5); Glucose 100 mg/dL (80-115); Potassium 3.5 mmol/L (3.5-5.1); Protein, Total 5.1 g/dL (5.8-8.1); Sodium 140 mmol/L (136-145)
[2021-09-10 07:52] VITALS: BMI 20.8
[2021-09-10] MEDS: Dexmedetomidine 1,000 MCG in Sodium Chloride 0.9% 250 ML 240 ML IVPB SCH ×2 (08:19)
[2021-09-10] MEDS: methylPREDNISolone Sod Succ 40 MG VIAL IVP SCH (08:19)
[2021-09-10] MEDS: Potassium Chloride 20 MEQ in Premix Bag 1 BAG IVPB SCH ×2 (08:20→12:57)
[2021-09-10] MEDS: Pantoprazole 40 MG VIAL IVP SCH (08:20)
[2021-09-10] MEDS: Enoxaparin Sodium 80 MG/0.8 ML SYRINGE SC SCH (08:21)
[2021-09-10] MEDS: busPIRone HCl 5 MG TAB PER TUBE SCH ×2 (08:21→20:47)
[2021-09-10] MEDS: Polyethylene Glycol 3350 17 GM Packet PER TUBE SCH (08:22)
[2021-09-10] MEDS: Metoprolol Tartrate 25 MG TAB PO SCH ×2 (08:22→20:47)
[2021-09-10] MEDS: ALPRAZolam 1 MG TAB PO SCH ×3 (08:22→20:47)
[2021-09-10] MEDS: Senokot S 8.6-50 MG TAB PER TUBE SCH ×2 (08:23→20:47)
[2021-09-10] MEDS ORDERED: Nystatin Powder 15 GM BOT TOP PRN (09:00)
[2021-09-10] MEDS ORDERED: Rocuronium Bromide 50 MG/5 ML VIAL ONE (09:30)
[2021-09-10] MEDS ORDERED: Propofol 500 MG/50 ML VIAL ONE (09:30)
[2021-09-10] MEDS ORDERED: fentaNYL Citrate/PF 100 MCG/2 ML SYRINGE ONE (09:37)
[2021-09-10] MEDS ORDERED: Lidocaine 2% PF 5 ML VIAL ONE (09:39)
[2021-09-10] MEDS ORDERED: Bupivacaine PF 0.5% 30 ML VIAL ONE (09:39)
[2021-09-10] MEDS ORDERED: Lidocaine 1% w/Epinephrine 1:100K 20 ML VIAL ONE (09:39)
[2021-09-10] MEDS ORDERED: Rocuronium Bromide 10 MG/ML (10ML VIAL) ONE (10:10)
[2021-09-10] MEDS ORDERED: PROPOFOL 200 MG/20 ML VIAL ONE (10:10)
[2021-09-10] MEDS ORDERED: Metoclopramide HCl 10 MG/2 ML VIAL IVP PRN (11:00)
[2021-09-10] MEDS: Nicotine 14 MG PATCH TD SCH (13:00)
[2021-09-10] MEDS: Propofol 1,000 MG/100 ML VIAL IV PRN (20:48)
[2021-09-11 04:01] LABS: ALT (SGPT) 31 U/L (8-55); AST (SGOT) 24 U/L (5-34); Albumin 2.6 g/dL (3.4-4.8); Alkaline Phosphatase 88 U/L (40-110); Anion Gap 13 mmol/L (10-20); BUN (Urea Nitrogen) 13 mg/dL (8.4-25.7); Bilirubin, Total 0.5 mg/dL (0.2-1.2); Calc. Creatinine Clearance 123 mL/min (70-130); Calcium 8.3 mg/dL (7.8-10.44); Carbon Dioxide 30 mmol/L (23-31); Chloride 101 mmol/L (98-107); Estimated GFR 108; Globulin 2.8 g/dL (2.4-3.5); Glucose 91 mg/dL (80-115); Potassium 3.7 mmol/L (3.5-5.1); Protein, Total 5.4 g/dL (5.8-8.1); Sodium 140 mmol/L (136-145)
[2021-09-11 04:12] LABS: Band 7 % (5-11); Hemoglobin 9.8 g/dL (14.0-18.0); Hypochromia SLIGHT = 6-15 cells (100X) (0-5/hpf); Lymphocytes 11 % (21-51); MDiff Complete? YES; Mean Corpuscular HGB CONC 32.3 g/dL (32.0-36.0); Mean Corpuscular Hemoglobin 29.6 pg (27.0-31.0); Mean Corpuscular Volume 91.7 fL (78.0-98.0); Mean Platelet Volume 9.3 fL (7.4-10.4); Monocytes 4 % (0-10); Neutrophil 78 % (42-75); Platelet Count 252 thou/uL (130-400); Platelet Morphology Comment Appears Adequate; RBC Distribution Width 14.8 % (11.5-14.5); White Blood Cell (WBC) Count 22.4 thou/uL (4.8-10.8)
[2021-09-11] MEDS: Metoprolol Tartrate 25 MG TAB PO SCH (08:24)
[2021-09-11] MEDS: Senokot S 8.6-50 MG TAB PER TUBE SCH (08:24)
[2021-09-11] MEDS: Polyethylene Glycol 3350 17 GM Packet PER TUBE SCH (08:24)
[2021-09-11] MEDS: busPIRone HCl 5 MG TAB PER TUBE SCH (08:25)
[2021-09-11] MEDS: methylPREDNISolone Sod Succ 40 MG VIAL IVP SCH (08:25)
[2021-09-11] MEDS: Leflunomide 10 mg Tablet PO SCH (08:26)
[2021-09-11] MEDS ORDERED: Scopolamine 1.5 mg/72 hour Patch TD SCH (09:45)
[2021-09-11 11:34] VITALS: BP 126/100
[2021-09-11 11:53] VITALS: TEMP 98.4
[2021-09-11] MEDS: Nicotine 14 MG PATCH TD SCH (14:45)
[2021-09-11] MEDS: Pantoprazole 40 MG VIAL IVP SCH (14:45)
[2021-09-11] MEDS ORDERED: fentaNYL 50 mcg/hour Patch TD SCH (15:00)
[2021-09-11] MEDS ORDERED: Enoxaparin Sodium 80 MG/0.8 ML SYRINGE SC SCH (21:00)
== END 2021-09-11 16:15 | DRG 4 ==
LOC: ERS 06:15 → T4-B 10:44 → IMCU/EMU 08-27 16:49 → CCU 08-27 17:38
PROVIDERS: ADMIT Student in an Organized Health Care Education/Training Program; ATTEND Student in an Organized Health Care Education/Training Program
PROC: 5A1955Z Respiratory Ventilation, Greater than 96 Consecutive Hours (ICD-10-PCS; 2021-08-27)
PROC: 0BH17EZ Insertion of Endotracheal Airway into Trachea, Via Natural or Artificial Opening (ICD-10-PCS; 2021-08-27)
PROC: 3E033XZ Introduction of Vasopressor into Peripheral Vein, Percutaneous Approach (ICD-10-PCS; 2021-08-27)
PROC: 0D9670Z Drainage of Stomach with Drainage Device, Via Natural or Artificial Opening (ICD-10-PCS; 2021-08-27)
PROC: 3E0G76Z Introduction of Nutritional Substance into Upper GI, Via Natural or Artificial Opening (ICD-10-PCS; 2021-08-27)
PROC: 0B110F4 Bypass Trachea to Cutaneous with Tracheostomy Device, Open Approach (ICD-10-PCS; principal; 2021-09-10)
PROC: 0DH63UZ Insertion of Feeding Device into Stomach, Percutaneous Approach (ICD-10-PCS; 2021-09-10)
DX: J84.10 Pulmonary fibrosis, unspecified (principal); J18.9 Pneumonia, unspecified organism; I26.93 Single subsegmental thrombotic pulmonary embolism without acute cor pulmonale; J96.01 Acute respiratory failure with hypoxia; G93.41 Metabolic encephalopathy; R57.8 Other shock; I50.31 Acute diastolic (congestive) heart failure; E87.1 Hypo-osmolality and hyponatremia; E46 Unspecified protein-calorie malnutrition; Z51.5 Encounter for palliative care; Z20.822 Contact with and (suspected) exposure to COVID-19; R91.8 Other nonspecific abnormal finding of lung field; M19.90 Unspecified osteoarthritis, unspecified site; F17.210 Nicotine dependence, cigarettes, uncomplicated; E87.6 Hypokalemia; R94.31 Abnormal electrocardiogram [ECG] [EKG]; I48.0 Paroxysmal atrial fibrillation; M06.9 Rheumatoid arthritis, unspecified; D50.9 Iron deficiency anemia, unspecified; R73.9 Hyperglycemia, unspecified; E87.5 Hyperkalemia; F41.9 Anxiety disorder, unspecified; K59.00 Constipation, unspecified; Z79.51 Long term (current) use of inhaled steroids; Z78.1 Physical restraint status; Z68.21 Body mass index [BMI] 21.0-21.9, adult
CPT/HCPCS: 36415; 36416; 36600; 71045; 71260; 74018; 80048; 80053; 80202; 81003; 82728; 82805; 83540; 83550; 83735; 83880; 84100; 84145; 84478; 84484; 85025; 87040; 87070; 87081; 87116; 87205; 87206; 93005; 93306; 94002; 94003; 94640; 94660; 96365; C9113; J0456; J0692; J0696; J1650; J1940; J2001; J2060; J2185; J2250; J2270; J2704; J2765; J2920; J3010; J3360; J3370; J3475; J3480; J3490; J7050; J7620; Q9967; S0020; U0003; U0005